=== PATIENT | male | born 1980 | race African-American/Black ===

== ENCOUNTER → 2016-07-14 | Outpatient (REF) ==
--- NOTE | 2016-07-14 16:20 | REP ---
Clinical: Pain and disability. Technique: AP, lateral, bilateral oblique, flexion/extension, and open-mouth views. Findings: The patient is status post anterior fusion and discectomy at the C3 through six C6 levels. Mild degenerative changes at the C2-3 level include endplate sclerosis as well as the C6-7 level with endplate sclerosis and anterior spurring. Remainder examination appears normal for age. Impression: Anterior fusion and degenerative changes as noted above. Signed by Sony Eastman MD 07/14/2016 04:11 P
--- NOTE | 2016-07-14 16:21 | REP ---
Clinical: Pain. Technique: AP lateral and swimmer's views. Findings: Thoracic spine is normal for age. No acute fracture / compression injury or subluxation. Evidence for anterior fusion involving the mid to lower cervical spine. Impression: Normal age appropriate thoracic spine radiographs. Signed by Sony Eastman MD 07/14/2016 04:13 P
--- NOTE | 2016-07-14 16:22 | REP ---
Chest two views HISTORY: Disability Comparison: None The lungs are clear. The heart is normal in size. The pulmonary vasculature is normal in appearance. The bony structure is intact. IMPRESSION: No acute disease. Signed by Mahendra Caputo MD 07/14/2016 04:14 P
--- NOTE | 2016-07-14 16:23 | REP ---
Clinical: Pain and disability . Technique: Internal rotation, external rotation, and Y view right and left shoulder. Findings: No acute fracture or dislocation. The acromioclavicular and glenohumeral joints are intact. Minimal degenerative changes at the bilateral acromioclavicular joints noted. No periarticular calcifications or further overt degenerative changes are appreciated. Sub acromial space is normal. Surrounding soft tissues are unremarkable. Impression: Minimal degenerative changes at the acromioclavicular level bilaterally. Otherwise age appropriate examination bilaterally. Signed by Sony Eastman MD 07/14/2016 04:14 P
--- NOTE | 2016-07-14 16:35 | REP ---
Clinical: Pain and disability . Technique: AP, lateral, bilateral oblique, and coned-down views. Findings: Alignment and lordosis is maintained. The vertebral bodies including transverse process and spinous processes are intact and normal for age . There is no evidence for acute fracture / compression injury or subluxation. No evidence for spondylolysis or spondylolisthesis. No significant degenerative change is noted. Impression: Normal age appropriate lumbosacral spine radiograph series. Signed by Sony Eastman MD 07/14/2016 04:27 P
--- NOTE | 2016-07-14 16:42 | REP ---
SINUSES, THREE VIEWS: HISTORY: Disability. Mucosal thickening is present in the left maxillary sinus. The remaining sinuses are clear. There is no fracture or bone lesion. IMPRESSION: Left maxillary sinus mucosal thickening. Signed by Mahendra Caputo MD 07/14/2016 04:44 P
== END ==
LOC: M SMT 15:12
PROVIDERS: ATTEND Internal Medicine
DX: Z02.71 Encounter for disability determination (principal)